=== PATIENT | female | born 1975 | race Native Hawaiian/Other Pacific Islander ===

== ENCOUNTER 2019-07-13 22:19 | Emergency (ER) | payer OTHER ==
[~2019-07-13] VITALS: Ht 167.6 cm; Wt 136.1 kg
[2019-07-13 23:42] LABS: PLATELET COUNT 104 K/uL (152-353)
[2019-07-13 23:48] LABS: POTASSIUM 3.5 mmol/L (3.6-5.2); SODIUM 139 mmol/L (136-145)
[2019-07-14 01:10] VITALS: BP 159/82; TEMP 98
== END 2019-07-14 01:11 | disposition home or self-care (01) ==
LOC: ED 22:19
PROVIDERS: Family Medicine
DX: J45.901 Unspecified asthma with (acute) exacerbation (principal)
CPT/HCPCS: 80053; 81000; 81025; 82550; 82553; 83880; 84484; 85027; 93005; 94664; 96360; 96365; 96375; 99284; J2405; J2930

== ENCOUNTER 2020-12-30 11:01 | Day surgery (SDC) | payer OTHER ==
[2020-12-23 09:34] LABS: PLATELET COUNT 82 K/uL (152-353)
[2020-12-23 09:40] LABS: POTASSIUM 3.6 mmol/L (3.6-5.2)
== END 2020-12-30 14:40 | disposition home or self-care (01) ==
LOC: OR 11:01
PROVIDERS: ATTEND Internal Medicine Gastroenterology
PROC: 0DBN8ZZ Excision of Sigmoid Colon, Via Natural or Artificial Opening Endoscopic (ICD-10-PCS; principal; 2020-12-30)
PROC: 0DBL8ZZ Excision of Transverse Colon, Via Natural or Artificial Opening Endoscopic (ICD-10-PCS; 2020-12-30)
DX: D12.5 Benign neoplasm of sigmoid colon (principal); D12.3 Benign neoplasm of transverse colon; K64.8 Other hemorrhoids; R10.30 Lower abdominal pain, unspecified; R93.5 Abnormal findings on diagnostic imaging of other abdominal regions, including retroperitoneum; Z20.822 Contact with and (suspected) exposure to COVID-19
CPT/HCPCS: 80053; 85027; 87635; J2405; J2704; J7120; U0003

== ENCOUNTER 2021-01-20 13:26 | Day surgery (SDC) | payer OTHER | END 2021-01-20 16:17 | disposition home or self-care (01) | LOC: OR 13:26 | PROVIDERS: ATTEND Internal Medicine Gastroenterology | PROC: 0DB68ZZ Excision of Stomach, Via Natural or Artificial Opening Endoscopic (ICD-10-PCS; principal; 2021-01-20) | DX: B37.81 Candidal esophagitis (principal); K29.40 Chronic atrophic gastritis without bleeding; K76.6 Portal hypertension; K31.89 Other diseases of stomach and duodenum; R10.13 Epigastric pain; K21.9 Gastro-esophageal reflux disease without esophagitis; K92.1 Melena; K74.69 Other cirrhosis of liver; Z20.822 Contact with and (suspected) exposure to COVID-19 | CPT/HCPCS: 87635; J2704; U0003 ==